=== PATIENT | male | born 1965 | race Hispanic/Latino ===

== ENCOUNTER → 2018-03-06 | Outpatient (CLI) | payer MEDICARE ==
[~2018-03-06] MED LIST: METFORMIN HCL500 MG PO
--- NOTE | 2018-03-06 12:52 | Diagnostic Imaging Report ---
EXAM: Renal Ultrasound INDICATION: \S\RENAL CYST COMPARISON: Renal ultrasound dated 06/10/2016 TECHNIQUE: Transverse and longitudinal images of the kidneys and bladder were obtained. FINDINGS: Right Kidney: Size: 13.4 cm Echogenicity: Normal Parenchymal thickness: Normal Collecting system: No hydronephrosis Stones: None Cyst/Mass: None Left Kidney: Size: 13.3 cm Echogenicity: Normal Parenchymal thickness: Normal Collecting system: No hydronephrosis Stones: None Cyst/Mass: Midpole cyst measuring 6.4 x 5.2 x 5.6 cm without internal flow on color Doppler. It previously measured 5.6 x 5.4 x 5.7 cm. Lateral midpole exophytic 1.7 x 1.2 1.7 cm cyst, not seen on prior exam. Bladder: Decompressed by a Davis catheter in place. Incidentally seen hepatic steatosis. IMPRESSION: Redemonstration of left renal midpole cyst, measuring 6.4 cm, previously 5.7 cm. Another exophytic mid pole left renal cyst measuring 1.7 cm, not seen on prior exam. Signed by: Dr. Moody Nascimento MD on 03/06/2018 12:48 PM
== END ==
LOC: US 09:23
PROVIDERS: ATTEND Urology
DX: N28.1 Cyst of kidney, acquired (principal)
CPT/HCPCS: 76770

== ENCOUNTER 2018-06-06 14:51 | Emergency (ER) | payer MEDICARE ==
[~2018-06-06] VITALS: Ht 180.3 cm; Wt 86.2 kg
--- OUTSIDE RECORDS SUMMARY | 2018-06-06 14:54 | XMS REPORT ---
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 Allergies, Adverse Reactions, Alerts Allergy Name Allergy Type Status Severity Reaction(s) Onset Date Inactive Date Treating Clinician Comments No Known Allergies DA Active U 2018-05-09 00:00:00 No Known Allergies DA Active U 2017-09-29 00:00:00 Medications This patient has no known medications. Results Test Description Test Time Test Comments Text Results Atomic Results Result Comments US RENAL RETROPERITONEAL COMP 2018-03-06 12:41:00 [place] [id number] Patient Name: KAROL LEE MR #: [id number] : 1965 Age/Sex: 52/M Req #: [id number] Adm Physician: Ordered by: KETTY BELTRAN MD Report #: [id number] Location: US Room/Bed: Procedure: [id number] US/US RENAL RETROPERITONEAL COMP Exam Date: Exam Time: REPORT STATUS: Signed EXAM: Renal Ultrasound INDICATION: COMPARISON: Renal ultrasound dated 06/10/2016 TECHNIQUE: Transverse and longitudinal images of the kidneys and bladder were obtained. FINDINGS: Right Kidney: Size: 13.4 cm Echogenicity: Normal Parenchymal thickness: Normal Collecting system: No hydronephrosis Stones: None Cyst/Mass: None Left Kidney: Size: 13.3 cm Echogenicity: Normal Parenchymal thickness: Normal Collecting system: No hydronephrosis Stones: None Cyst/Mass: Midpole cyst measuring 6.4 x 5.2 x 5.6 cm without internal flow on color Doppler. It previously measured 5.6 x 5.4 x 5.7 cm. Lateral midpole exophytic 1.7 x 1.2 1.7 cm cyst, not seen on prior exam. Bladder: Decompressed by a Davis catheter in place. Incidentally seen hepatic steatosis. IMPRESSION: Redemonstration of left renal midpole cyst, measuring 6.4 cm, previously 5.7 cm. Another exophytic mid pole left renal cyst measuring 1.7 cm, not seen on prior exam. Signed by: Dr. Moody Cortez MD on 03/06/2018 12:48 PM Dictated By: MOODY CORTEZ MD [id number] Transcribed By: NATALIE on 03/06/18 1248 COPY TO: KETTY BELTRAN MD
== END 2018-06-06 19:27 | disposition home or self-care (01) ==
LOC: ER 14:51
DX: R33.9 Retention of urine, unspecified (principal); G82.50 Quadriplegia, unspecified
CPT/HCPCS: 99282

== ENCOUNTER → 2018-08-28 | Outpatient (CLI) | payer MEDICARE ==
--- NOTE | 2018-08-28 10:41 | Diagnostic Imaging Report ---
EXAMINATION: Renal ultrasound. CLINICAL HISTORY :Renal cyst COMPARISON: 03/06/2018 TECHNIQUE: Grayscale and color Doppler evaluation of the kidneys and bladder was performed in transverse and longitudinal planes. DISCUSSION: RIGHT KIDNEY: The right kidney measures 13.3 cm in length and shows normal echogenicity. No hydronephrosis, shadowing calculi or solid mass lesions. LEFT KIDNEY: The left kidney measures 13.8 cm in length and shows normal echogenicity. Large exophytic interpolar cyst measures 5.8 x 6.2 x 5.4 cm (previously 6.4 x 5.2 x 5.6 cm). Smaller exophytic cyst projects laterally and measures 1.7 x 1.2 x 1.7 cm, previously 1.2 x 1 x 1.3 cm. BLADDER: Collapsed around the retention balloon of a catheter. Echogenic liver is again incidentally noted. IMPRESSION: Simple left renal cysts as above. The larger of the 2 cysts is stable when accounting for differences in technique. The smaller cyst has marginally increased in size. Signed by: Dr. Low Alvarez M.D. on 08/28/2018 10:38 AM
== END ==
LOC: US 09:18
PROVIDERS: ATTEND Urology
DX: N28.1 Cyst of kidney, acquired (principal)
CPT/HCPCS: 76770